=== PATIENT | female | born 1955 | race Caucasian/White ===

== ENCOUNTER 2019-12-31 10:56 | Inpatient (IN) | payer OTHER ==
--- NOTE | 2019-12-31 11:04 | PDOC ---
History of Present Illness - General Chief Complaint: Chest Pain Stated Complaint: CHEST PAIN Time Seen by Provider: 12/31/19 11:03 History Source: Patient Exam Limitations: No Limitations - History of Present Illness Initial Comments: 12/31/19 11:49 Pt presents to the ED complaining of the acute onset of chest pressure this AM that radiated to both arms. Denies shortness of breath, nausea or vomiting. Pain was cosntant, moderate in severity--described by the patient "as though I had been lifting something heavy". Pain lasted for approximately 20 min and then spontaneously resolved. Patient has a history of DI and hypothyroidism. States that she has experienced HTN in medical settings in the past, but PCP diagnosed her with white coat HTN after 24 hr blood pressure monitoring. Denies other cardiac risk factors. Past History - Past Medical History Allergies/Adverse Reactions: Allergies Allergy/AdvReac Type Severity Reaction Status Date / Time No Known Allergies Allergy Verified 12/31/19 10:58 Home Medications: Ambulatory Orders Desmopressin Acetate 0.1 mg PO DAILY 06/08/15 Levothyroxine [Synthroid -] 50 mcg PO QID 06/08/15 Anemia: No Asthma: No Cancer: No Cardiac Disorders: No CVA: No COPD: No CHF: No Dementia: No Diabetes: Yes (INSIPIDUS) GI Disorders: No Disorders: No HTN: Yes Hypercholesterolemia: No Liver Disease: No Seizures: Yes (hypoactive) Thyroid Disease: No - Surgical History Abdominal Surgery: No Appendectomy: No Cardiac Surgery: No Cholecystectomy: No Lung Surgery: No Neurologic Surgery: No Orthopedic Surgery: Yes (MENISCUS REPAIR) - Immunization History Td Vaccination: Yes Immunization Up to Date: No - Psycho Social/Smoking Cessation Hx Smoking Status: No Smoking History: Never smoked Number of Cigarettes Smoked Daily: 0 Hx Alcohol Use: Yes (occasional) Drug/Substance Use Hx: No Substance Use Type: None Hx Substance Use Treatment: No Review of Systems - Review of Systems Able to Perform ROS?: Yes Is the patient limited Japanese proficient: No Constitutional: No: Symptoms Reported, See HPI, Chills, Diaphoresis, Fever, Loss of Appetite, Malaise, Night Sweats, Weakness, Weight Stable, Unintentional Wgt. Loss, Unexplained wgt Loss, Other HEENTM: No: Symptoms Reported, See HPI, Eye Pain, Blurred Vision, Tearing, Recent change in vision, Double Vision, Cataracts, Ear Pain, Ocular Prothesis, Ear Discharge, Nose Pain, Nose Congestion, Tinnitus, Nose Bleeding, Hearing Loss , Throat Pain, Throat Swelling, Mouth Pain, Dental Problems, Difficulty Swallowing, Mouth Swelling, Other Respiratory: No: Symptoms reported, See HPI, Cough, Orthopnea, Shortness of Breath, SOB with Exertion, SOB at Rest, Stridor, Wheezing, Productive cough, Hemoptysis, Other Cardiac (ROS): Yes: Chest Pain, Chest Tightness. No: Symptoms Reported, See HPI , Edema, Irregular Heart Rate, Lightheadedness, Palpitations, Syncope, Other ABD/GI: No: Symptoms Reported, See HPI, Abdominal Distended, Abd. Pain w/ defecation, Blood Streaked Bowels, Constipated, Diarrhea, Difficulty Swallowing , Nausea, Poor Appetite, Poor Fluid Intake, Rectal Bleeding, Vomiting, Indigestion, Abdominal cramping, Tarry Stools, Other : No: Symptoms Reported, See HPI, Burning, Dysuria, Discharge, Frequency, Flank Pain, Hematuria, Incontinence, Pain, Urgency, Testicular Mass, Testicular Swelling, Lesions, Testicular Pain, Other Musculoskeletal: No: Symptoms Reported, See HPI, Back Pain, Gout, Joint Pain, Joint Swelling, Muscle Pain, Muscle Weakness, Neck Pain, Joint Stiffness, Other Neurological: No: Symptoms reported, See HPI, Headache, Numbness, Paresthesia, Pre-Existing Deficit, Seizure, Tingling, Tremors, Weakness, Unsteady Gait, Ataxia, Dizziness, Other All Other Systems: Reviewed and Negative *Physical Exam - Physical Exam 12/31/19 11:53 gen: alert, NAD HEENT: normocephalic, atraumatic CV: rrr no m/r/g pulm: CTA b/l Abdomen: soft, non tender, non distended, no guarding or rebound ext: no edema or tenderness. Heart Score/ECG Review - History History: Slightly suspicious - Electrocardiogram EKG: Normal - Age Age: >/= 65 - Risk Factors Based on the list above the patient has:: No risk factors known - ECG Intrepretation Rhythm: Regular Rhythm - [place]: Normal ED Treatment Course - LABORATORY CBC & Chemistry Diagram: 12/31/19 11:27 12/31/19 11:20 Medical Decision Making - Medical Decision Making 12/31/19 11:54 Pt presents to the ED complaining of chest pain. Patient has a normal EKG and no risk factors for cardiac disease, but given age, will check two sets of cardiac enzymes and discharge home if negative. patient has no signs or symptoms suspicious for PE. 12/31/19 14:42 Troponin is slightly positive. Patient remains chest pain free and completely asymptomatic. will admit to medicine for NSTEMI Discharge - Discharge Information Problems reviewed: Yes Clinical Impression/Diagnosis: NSTEMI (non-ST elevated myocardial infarction) Condition: Good - Admission Yes - Follow up/Referral Referrals: Yesica Puente MD [Primary Care Provider] - - Patient Discharge Instructions - Post Discharge Activity
[2019-12-31] MEDS ORDERED: ASPIRIN 81 MG CHEWABLE TABLETS PO ONE (11:18)
[2019-12-31] MEDS ORDERED: ASPIRIN 81 MG CHEWABLE TABLETS ONE (11:34)
[2019-12-31 11:49] LABS: BASO % 0.5 % (0-2.0); EOS % 0.6 % (0-4.5); HEMATOCRIT 44.9 % (32.4-45.2); HEMOGLOBIN 15.1 GM/dl (10.7-15.3); LYMPH % 25.8 % (8-40); MCH 31.2 pg (25.7-33.7); MCHC 33.6 g/dl (32.0-36.0); MEAN CELL VOLUME 92.8 fl (80-96); MEAN PLT VOLUME 10.2 fl (7.5-11.1); MONO % 8.5 % (3.8-10.2); NEUT % 64.6 % (42.8-82.8); PLATELET COUNT 219 K/MM3 (134-434); RBC 4.84 M/mm3 (3.60-5.2); RDW 12.1 % (11.6-15.6); WHITE BLOOD COUNT 4.9 K/mm3 (4.0-10.8)
[2019-12-31 11:58] LABS: ALBUMIN 3.9 g/dl (3.4-5.0); BILIRUBIN,TOTAL 0.6 mg/dl (0.2-1); CALCIUM 9.8 mg/dl (8.5-10); CREATININE 0.7 mg/dl (0.55-1.3); POTASSIUM 4.3 mmol/L (3.5-5.1); TOT PROT 6.8 g/dl (6.4-8.2)
[2019-12-31 15:27] LABS: EPITHELIAL CELLS FEW /hpf
--- NOTE | 2019-12-31 15:42 | HP ---
CHIEF COMPLAINT: Chest pain PCP: Dr. Jackeline Puente [facility] Administrative Specialist: Dr. Ambrose [place] HISTORY OF PRESENT ILLNESS: 64 year-old female with a PMH significant for elevated blood pressure not on medication, central diabetes insipidus x 10 years, and hypothyroidism. Patient presented to the ED for evaluation of symptoms of chest pressure and lightheadedness. Patient states that two days ago she awoke feeling slightly lightheaded. In the evening she had an episode of acid reflux. This morning she awoke suddenly from sleep with a feeling of pressure across her entire upper chest. The pain extended to the back of both arms, to the back of her neck, and she had tingling in her left arm. She also felt lightheaded. She took some Tums. The chest pressure resolved after about 20 minutes. On arrival to the ED patient experienced a flutter feeling in her chest and this recurred on the medical surgical floor. Patient denies diaphoresis, SOB, ANGELA, lower extremity edema. 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; lives with and son Smoking: never Alcohol: socially Drugs: no Allergies No Known Allergies Allergy (Verified 12/31/19 10:58) HOME MEDICATIONS: Home Medications Medication Instructions Recorded Desmopressin Acetate 0.1 mg PO QID 06/08/15 Levothyroxine [Synthroid -] 50 mcg PO DAILY 06/08/15 REVIEW OF SYSTEMS CONSTITUTIONAL: Absent: fever, chills, diaphoresis, generalized weakness, malaise, loss of appetite, weight change HEENT: Absent: rhinorrhea, nasal congestion, throat pain, throat swelling, difficulty swallowing, mouth swelling, ear pain, eye pain, visual changes CARDIOVASCULAR: +chest pressure, lightheadedness, palpitations Absent: syncope, irregular heart rate, peripheral edema RESPIRATORY: Absent: cough, shortness of breath, dyspnea with exertion, orthopnea, wheezing, stridor, hemoptysis GASTROINTESTINAL: Absent: abdominal pain, abdominal distension, nausea, vomiting, diarrhea, constipation, melena, hematochezia GENITOURINARY: Absent: dysuria, frequency, urgency, hesitancy, hematuria, flank pain, genital pain MUSCULOSKELETAL: Absent: myalgia, arthralgia, joint swelling, back pain, neck pain SKIN: Absent: rash, itching, pallor HEMATOLOGIC/IMMUNOLOGIC: Absent: easy bleeding, easy bruising, lymphadenopathy, frequent infections ENDOCRINE: Absent: unexplained weight gain, unexplained weight loss, heat intolerance, cold intolerance NEUROLOGIC: Absent: headache, focal weakness or paresthesias, dizziness, unsteady gait, seizure, mental status changes, bladder or bowel incontinence PSYCHIATRIC: Absent: anxiety, depression, suicidal or homicidal ideation, hallucinations. PHYSICAL EXAMINATION Vital Signs - 24 hr 12/31/19 12/31/19 12/31/19 10:56 11:15 12:10 Temperature 98.4 F Pulse Rate 60 Pulse Rate [ 64 50 L Apical] Respiratory 16 16 Rate Blood Pressure 173/75 H Blood Pressure 175/69 H 146/60 [Right Arm] O2 Sat by Pulse 100 95 98 Oximetry (%) 12/31/19 12/31/19 13:50 15:00 Temperature Pulse Rate Pulse Rate [ 56 L 58 L Apical] Respiratory 18 16 Rate Blood Pressure Blood Pressure 125/62 [Right Arm] O2 Sat by Pulse 98 98 Oximetry (%) GENERAL: Awake, alert, and fully oriented, in no acute distress. HEAD: Normal with no signs of trauma. EYES: Pupils equal, round and reactive to light, extraocular movements intact, sclera anicteric, conjunctiva clear. LUNGS: Breath sounds equal, clear to auscultation bilaterally. No wheezes, and no crackles. No accessory muscle use. HEART: Regular rate and rhythm, S1 and S2 ABDOMEN: Soft, nontender, not distended, MUSCULOSKELETAL: Normal range of motion at all joints. No bony deformities or tenderness. No CVA tenderness. UPPER EXTREMITIES: 2+ pulses, warm, well-perfused. No cyanosis. No clubbing. No peripheral edema. LOWER EXTREMITIES: 2+ pulses, warm, well-perfused. No calf tenderness. No peripheral edema. NEUROLOGICAL: Cranial nerves II-XII intact. Normal speech. Laboratory Results - last 24 hr 12/31/19 12/31/19 12/31/19 11:20 11:20 11:27 WBC 4.9 RBC 4.84 Hgb 15.1 Hct 44.9 MCV 92.8 MCH 31.2 MCHC 33.6 RDW 12.1 Plt Count 219 MPV 10.2 Absolute Neuts (auto) 3.2 Neutrophils % 64.6 Lymphocytes % 25.8 Monocytes % 8.5 Eosinophils % 0.6 Basophils % 0.5 Sodium 130 L Potassium 4.3 Chloride 101 Carbon Dioxide 24 Anion Gap 5 L BUN 13.0 Creatinine 0.7 Est GFR (CKD-EPI)AfAm 104.64 Est GFR (CKD-EPI)NonAf 90.29 Random Glucose 106 Calcium 9.8 Total Bilirubin 0.6 AST 23 ALT 22 Alkaline Phosphatase 68 Creatine Kinase 73 Troponin I 0.05 Total Protein 6.8 Albumin 3.9 Urine Color Urine Appearance Urine pH Urine Protein Urine Glucose (UA) Urine Ketones Urine Blood Urine Nitrite Urine Bilirubin Urine Urobilinogen Ur Leukocyte Esterase Urine RBC Urine WBC Ur Transition Epith Cell 12/31/19 12/31/19 12/31/19 13:45 13:45 15:10 WBC RBC Hgb Hct MCV MCH MCHC RDW Plt Count MPV Absolute Neuts (auto) Neutrophils % Lymphocytes % Monocytes % Eosinophils % Basophils % Sodium Potassium Chloride Carbon Dioxide Anion Gap BUN Creatinine Est GFR (CKD-EPI)AfAm Est GFR (CKD-EPI)NonAf Random Glucose Calcium Total Bilirubin AST ALT Alkaline Phosphatase Creatine Kinase 74 Troponin I 0.23 H Total Protein Albumin Urine Color Yellow Urine Appearance Clear Urine pH 5.0 Urine Protein Negative Urine Glucose (UA) Negative Urine Ketones Negative Urine Blood Negative Urine Nitrite Negative Urine Bilirubin Negative Urine Urobilinogen 0.2 Ur Leukocyte Esterase Trace H Urine RBC 0-2 Urine WBC 2-5 Ur Transition Epith Cell Few ASSESSMENT/PLAN: 64 year-old female with a PMH significant for elevated blood pressure not on medication, central diabetes insipidus x 10 years, and hypothyroidism. Admitted for chest pain. Chest pain NSTEMI --troponins 0.05-->0.23-->0.85 --serial ECGs reviewed, non specific T wave inversions, 1st degree block, no significant change from 2016 --ASA 325mg x 1; start daily ASA, high-dose Lipitor; lovenox 1mg/kg q12h; Plavix 75mg daily; defer BB due to sinus bradycardia; lisinopril 5mg --Echo ordered --Dr. Aburto following Elevated blood pressure --start lisinopril DVT prophylaxis: on full dose lovenox Full code Visit type - Emergency Visit Emergency Visit: Yes ED Registration Date: 01/01/20 Care time: The patient presented to the Emergency Department on the above date and was hospitalized for further evaluation of their emergent condition. - New Patient This patient is new to me today: Yes Date on this admission: 01/01/20 - Critical Care Critical Care patient: Yes Total Critical Care Time (in minutes): 90 Critical Care Statement: The care of this patient involved high complexity decision making to prevent further life threatening deterioration of the patient 's condition and/or to evaluate & treat vital organ system(s) failure or risk of failure.
[2019-12-31 17:38] VITALS: BMI 27.3
[2019-12-31] MEDS ORDERED: LEVOTHYROXINE NA 50 MCG TABLET (FP) PO SCH (18:00)
[2019-12-31 18:04] LABS: N-TERMINAL BNP 182.3 pg/ml (5-125)
[2019-12-31] MEDS: ENOXAPARIN NA (PORCINE) 80 MG/0.8 ML DISP.SYRIN SQ SCH (19:59)
[2019-12-31] MEDS: CLOPIDOGREL BISULFATE 75 MG TABLET (FP) PO SCH (19:59)
[2019-12-31] MEDS: LEVOTHYROXINE NA 50 MCG TABLET (FP) PO SCH (20:00)
[2019-12-31 20:36] LABS: CHOLESTEROL 195 mg/dl (50-200); HDL CHOLESTEROL 74 mg/dl (40-60); LDL CHOLESTEROL (ONLY DFH) 99 mg/dl (5-100); TRIGLYCERIDES 112 mg/dl (0-150)
--- NOTE | 2019-12-31 20:40 | CON.CARD ---
Consult Consult Specialty:: cardiology Reason for Consultation:: chest pain; +TNI - History of Present Illness Chief Complaint: Pt A&Ox3; no chest ain presently. Her son and are at bedisode. History of Present Illness: Pt is a 64 yr old white woman with PMHx diabetes insipidus, hypothyroidism (on Synthroid), HTN (on no medications; BP "about 140/80 at home"; overweight, hyperlipidemia, now presents to the ED complaining of the acute onset of chest pressure this AM when she woke up out of a dream at 830am; the discomfort radiated to both arms. Denies shortness of breath, nausea or vomiting. Pain was costant, moderate in severity--described by the patient "as though I had been lifting something heavy". Pain lasted for approximately 20 min and then spontaneously resolved. States that she has experienced HTN in medical settings in the past, but PCP diagnosed her with white coat HTN after 24 hr blood pressure monitoring. Denies other cardiac risk factors. For the past 2 months, pt has had a mild-moderateely intense left anterior chest wall pressure with exertion (swims; does elliptical; walks) that she ignores and works through. +exposure to 2nd hand smoke growing up. Father: had several MIs, the first probably in his 60s; of lung CA. Brother: smoker; had [place] in his 50s. - History Source History Provided By: Patient, Family Member (; son), Medical Record Limitations to Obtaining History: No Limitations - Past Medical History Reproductive: Yes: Postmenopausal ...: No Heme/Onc: No: Anemia - Alcohol/Substance Use Hx Alcohol Use: Yes (occasional) - Smoking History Smoking history: Former smoker (not a smoker, but grew up exposed to 2nd hand smoke in the house) Aproximately how many cigarettes per day: 0 Home Medications - Allergies Allergies/Adverse Reactions: Allergies Allergy/AdvReac Type Severity Reaction Status Date / Time No Known Allergies Allergy Verified 12/31/19 10:58 - Home Medications Home Medications: Ambulatory Orders Desmopressin Acetate 0.1 mg PO QID 06/08/15 Levothyroxine [Synthroid -] 50 mcg PO DAILY 06/08/15 Family Medical History Family Hx Cancer: Father (lung) Family Hx Cardiac Disorders: Father ([place] in his 60s), Brother ([place] in his 50s) Review of Systems - Review of Systems Constitutional: reports: No Symptoms Eyes: reports: No Symptoms HENT: reports: No Symptoms Neck: reports: No Symptoms Cardiovascular: reports: Chest Pain Respiratory: reports: No Symptoms Gastrointestinal: reports: Indigestion Genitourinary: reports: No Symptoms Breasts: reports: No Symptoms Reported Musculoskeletal: reports: No Symptoms Integumentary: reports: No Symptoms Neurological: reports: No Symptoms Endocrine: reports: No Symptoms Hematology/Lymphatic: reports: No Symptoms Psychiatric: reports: No Symptoms - Risk Factors Known Risk Factors: Yes: Age, Family History, Hypertension Vital Signs: Vital Signs Temperature 98.7 F 12/31/19 17:23 Pulse Rate 63 12/31/19 18:30 Respiratory Rate 18 12/31/19 17:23 Blood Pressure 152/70 12/31/19 18:30 O2 Sat by Pulse Oximetry (%) 98 12/31/19 18:30 Constitutional: Yes: Anxious Eyes: Yes: WNL HENT: Yes: WNL Neck: Yes: WNL Respiratory: Yes: WNL Gastrointestinal: Yes: WNL Renal/: Yes: WNL Cardiovascular: Yes: Regular Rate and Rhythm JVD: No Carotid Bruit: No PMI: Non-Displaced Heart Sounds: Yes: S1, S2, S4 Musculoskeletal: Yes: WNL Extremities: Yes: WNL Edema: No Peripheral Pulses WNL: Yes Integumentary: Yes: WNL ...Motor Strength: WNL Psychiatric: Yes: WNL - Other Data Labs, Other Data: CBC, BMP 12/31/19 11:27 12/31/19 11:20 Troponin, BNP 12/31/19 12/31/19 12/31/19 11:20 13:45 16:30 Troponin I 0.05 0.23 H B-Natriuretic Peptide 182.3 H 12/31/19 18:15 Troponin I 0.85 H* B-Natriuretic Peptide Troponin, BNP 12/31/19 12/31/19 12/31/19 11:20 13:45 16:30 Troponin I 0.05 0.23 H B-Natriuretic Peptide 182.3 H 12/31/19 18:15 Troponin I 0.85 H* B-Natriuretic Peptide Abnormal Lab Results 12/31/19 12/31/19 12/31/19 11:20 13:45 15:10 PT with INR Sodium 130 L Chloride Carbon Dioxide Anion Gap 5 L Creatinine Troponin I 0.23 H B-Natriuretic Peptide Total Protein HDL Cholesterol Ur Leukocyte Esterase Trace H 12/31/19 12/31/19 12/31/19 16:30 18:15 18:15 PT with INR Sodium Chloride Carbon Dioxide Anion Gap Creatinine Troponin I 0.85 H* B-Natriuretic Peptide 182.3 H Total Protein HDL Cholesterol 74 H Ur Leukocyte Esterase 01/01/20 01/01/20 01/01/20 01:00 07:00 07:00 PT with INR 13.5 H Sodium 126 L Chloride 96 L Carbon Dioxide 19 L Anion Gap Creatinine 0.5 L Troponin I 3.91 H* B-Natriuretic Peptide Total Protein 5.8 L HDL Cholesterol Ur Leukocyte Esterase 01/01/20 07:00 PT with INR Sodium Chloride Carbon Dioxide Anion Gap Creatinine Troponin I 0.94 H* B-Natriuretic Peptide Total Protein HDL Cholesterol Ur Leukocyte Esterase Imaging - Results Chest X-ray: Image Reviewed (no acute pathology) EKG: Image Reviewed (NSR: r/o anterior [place], age undetermined; no acute STT changes) Problem List - Problems (1) HTN (hypertension) Assessment/Plan: Started on lisinopril. Anxiolytic may be helpful in the present hospital setting. Code(s): I10 - ESSENTIAL (PRIMARY) HYPERTENSION (2) Diabetes insipidus Assessment/Plan: hyponatremic. F/u with acid recovery operator, [place]. On DDAVP. Code(s): E23.2 - DIABETES INSIPIDUS (3) Hypothyroid Assessment/Plan: On synthroid; TSH WNL. Code(s): E03.9 - HYPOTHYROIDISM, UNSPECIFIED (4) Hyperlipidemia Assessment/Plan: Start atorvastatin 80 mg daily (NSTEMI). Code(s): E78.5 - HYPERLIPIDEMIA, UNSPECIFIED (5) Overweight Code(s): E66.3 - OVERWEIGHT (6) NSTEMI (non-ST elevated myocardial infarction) Assessment/Plan: TNI 0.06-->0.085 EKG: no acute STT changes. Plan: ASA 325 mg, then 81 mg daily. Clopidogrel 75 mg daily Lovenox 1mg/kg BW sc bid Atorvastatin 80 mg daily Lisinopril 10 mg daily (beta sherlyn not started: resting sinus bradycardia) Follow TNI and EKG. Telemetry. ECHO for LVEF, wall motion. Maintain hydration. F/u hyponatremia (hx diabetes insipidus). Code(s): I21.4 - NON-ST ELEVATION (NSTEMI) MYOCARDIAL INFARCTION
[2019-12-31] MEDS: ATORVASTATIN CA 80 MG TABLET (FP) PO SCH (21:01)
[2019-12-31] MEDS: DESMOPRESSIN ACETATE 0.1 MG TABLET PO SCH (21:04)
[2019-12-31] MEDS ORDERED: ACETAMINOPHEN 325 MG TABLET (FP) PO ONE (21:12)
[2019-12-31] MEDS: LISINOPRIL 5 MG TABLET (FP) PO SCH (21:21)
[2019-12-31] MEDS ORDERED: HEPARIN NA (PORCINE) 5,000 UNITS/ML 1ML VIAL SQ SCH (22:00)
[2019-12-31] MEDS ORDERED: ATORVASTATIN CA 40 MG TABLET (FP) PO SCH (22:00)
[2020-01-01] MEDS ORDERED: NITROGLYCERIN SUBLINGUAL 1/150 0.4 MG TAB ONE (03:26)
[2020-01-01] MEDS ORDERED: NITROGLYCERIN SUBLINGUAL 1/150 0.4 MG TAB SL ONE (03:30)
[2020-01-01] MEDS ORDERED: FAMOTIDINE 20 MG/50 ML IVPB 20 MG/50 ML MG IVPB ONE (03:30)
[2020-01-01] MEDS ORDERED: ALPRAZolam 0.25 MG TABLET PO ONE (03:30)
[2020-01-01] MEDS: LEVOTHYROXINE NA 50 MCG TABLET (FP) PO SCH (07:08)
[2020-01-01] MEDS: ENOXAPARIN NA (PORCINE) 80 MG/0.8 ML DISP.SYRIN SQ SCH ×2 (07:08→20:01)
[2020-01-01 09:00] LABS: BASO % 0.4 % (0-2.0); EOS % 0.6 % (0-4.5); HEMATOCRIT 41.8 % (32.4-45.2); HEMOGLOBIN 14.1 GM/dl (10.7-15.3); LYMPH % 26.2 % (8-40); MCH 31.4 pg (25.7-33.7); MCHC 33.8 g/dl (32.0-36.0); MEAN PLT VOLUME 10.3 fl (7.5-11.1); MONO % 8.1 % (3.8-10.2); NEUT % 64.7 % (42.8-82.8); PLATELET COUNT 206 K/MM3 (134-434); RDW 11.9 % (11.6-15.6); WHITE BLOOD COUNT 5.3 K/mm3 (4.0-10.8)
[2020-01-01 09:15] LABS: ALBUMIN 3.5 g/dl (3.4-5.0); CALCIUM 8.5 mg/dl (8.5-10); CREATININE 0.5 mg/dl (0.55-1.3); MAGNESIUM 1.8 mg/dL (1.8-2.4); TOT PROT 5.8 g/dl (6.4-8.2)
[2020-01-01] MEDS ORDERED: NITROGLYCERIN SUBLINGUAL 1/150 0.4 MG TAB SL PRN (09:16)
[2020-01-01 09:46] LABS: ACTIVATED PTT 33.1 SECONDS (25.2-36.5)
[2020-01-01 09:51] LABS: INR 1.21 (0.82-1.09); PROTHROMBIN TIME (PATIENT) 13.5 SEC (10.2-13.0)
[2020-01-01] MEDS: ASPIRIN 81 MG CHEWABLE TABLETS PO SCH (10:00)
[2020-01-01] MEDS: PANTOPRAZOLE 40 MG TABLET PO SCH (10:00)
[2020-01-01] MEDS: CLOPIDOGREL BISULFATE 75 MG TABLET (FP) PO SCH (10:00)
[2020-01-01] MEDS ORDERED: DESMOPRESSIN ACETATE 0.1 MG TABLET PO SCH (10:00)
[2020-01-01] MEDS: DESMOPRESSIN ACETATE 0.1 MG TABLET PO SCH ×4 (10:00→23:44)
[2020-01-01] MEDS: LISINOPRIL 5 MG TABLET (FP) PO SCH (10:00)
[2020-01-01] MEDS ORDERED: ASPIRIN COATED 81 MG TABLET.EC PO SCH (10:00)
--- NOTE | 2020-01-01 11:27 | PN ---
Progress Note, Physician Chief Complaint: Pt sitting up in bed; A&Ox3; had two incidences of abdominal "indigestion" overnight;once, had left hand tingling as well. Episodes lasted about 45 minutes each time. History of Present Illness: Pt is a 64 yr old white woman with PMHx diabetes insipidus, hypothyroidism (on Synthroid), HTN (on no medications; BP "about 140/80 at home"; overweight, hyperlipidemia, now presents to the ED complaining of the acute onset of chest pressure this AM when she woke up out of a dream at 830am; the discomfort radiated to both arms. Denies shortness of breath, nausea or vomiting. Pain was costant, moderate in severity--described by the patient "as though I had been lifting something heavy". Pain lasted for approximately 20 min and then spontaneously resolved. States that she has experienced HTN in medical settings in the past, but PCP diagnosed her with white coat HTN after 24 hr blood pressure monitoring. Denies other cardiac risk factors. For the past 2 months, pt has had a mild-moderateely intense left anterior chest wall pressure with exertion (swims; does elliptical; walks) that she ignores and works through. +exposure to 2nd hand smoke growing up. Father: had several MIs, the first probably in his 60s; of lung CA. Brother: smoker; had [place] in his 50s. - Current Medication List Current Medications: Active Medications Aspirin (Asa -) 81 mg PO DAILY [facility] Last Admin: 01/01/20 10:00 Dose: 81 mg Atorvastatin Calcium (Lipitor -) 80 mg PO HS [facility] [place] Last Admin: 12/31/19 21:01 Dose: 80 mg Clopidogrel Bisulfate (Plavix -) 75 mg PO DAILY [facility] [place] Last Admin: 01/01/20 10:00 Dose: 75 mg Desmopressin Acetate (Ddavp -) 0.1 mg PO QID [facility] Last Admin: 01/01/20 10:00 Dose: 0.1 mg Enoxaparin Sodium (Lovenox -) 70 mg SQ Q12H [facility] [place] Last Admin: 01/01/20 07:08 Dose: 70 mg Levothyroxine Sodium (Synthroid -) 50 mcg PO DAILY@0700 [facility] [place] Last Admin: 01/01/20 07:08 Dose: 50 mcg Lisinopril (Prinivil) 5 mg PO DAILY [facility] [place] Last Admin: 01/01/20 10:00 Dose: 5 mg Nitroglycerin (Nitrostat -) 0.4 mg SL Q5M PRN PRN Reason: FOR CHEST PAIN Pantoprazole Sodium (Protonix -) 40 mg PO DAILY [facility] [place] Last Admin: 01/01/20 10:00 Dose: 40 mg - Objective Vital Signs: Vital Signs Temperature 97.3 F L 01/01/20 10:00 Pulse Rate 62 01/01/20 10:00 Respiratory Rate 19 01/01/20 10:00 Blood Pressure 124/69 01/01/20 10:00 O2 Sat by Pulse Oximetry (%) 100 01/01/20 06:00 Constitutional: Yes: Anxious (mild) Eyes: Yes: WNL HENT: Yes: WNL Neck: Yes: WNL Cardiovascular: Yes: Regular Rate and Rhythm, S1, S2 Respiratory: Yes: WNL Gastrointestinal: Yes: WNL ...Rectal Exam: Yes: Deferred Genitourinary: No: Anuria Breast(s): Yes: WNL Musculoskeletal: Yes: WNL Extremities: Yes: WNL Edema: No Peripheral Pulses WNL: Yes Integumentary: Yes: WNL Neurological: Yes: WNL Psychiatric: Yes: WNL Labs: CBC, BMP 01/01/20 07:00 01/01/20 07:00 INR, PTT INR 1.21 (0.82-1.09) 01/01/20 07:00 Abnormal Lab Results 12/31/19 12/31/19 12/31/19 11:20 13:45 15:10 PT with INR Sodium 130 L Chloride Carbon Dioxide Anion Gap 5 L Creatinine Troponin I 0.23 H B-Natriuretic Peptide Total Protein HDL Cholesterol Ur Leukocyte Esterase Trace H 12/31/19 12/31/19 12/31/19 16:30 18:15 18:15 PT with INR Sodium Chloride Carbon Dioxide Anion Gap Creatinine Troponin I 0.85 H* B-Natriuretic Peptide 182.3 H Total Protein HDL Cholesterol 74 H Ur Leukocyte Esterase 01/01/20 01/01/20 01/01/20 01:00 07:00 07:00 PT with INR 13.5 H Sodium 126 L Chloride 96 L Carbon Dioxide 19 L Anion Gap Creatinine 0.5 L Troponin I 3.91 H* B-Natriuretic Peptide Total Protein 5.8 L HDL Cholesterol Ur Leukocyte Esterase 01/01/20 07:00 PT with INR Sodium Chloride Carbon Dioxide Anion Gap Creatinine Troponin I 0.94 H* B-Natriuretic Peptide Total Protein HDL Cholesterol Ur Leukocyte Esterase - ....Imaging Chest X-ray: Image Reviewed (no acute pathology) EKG: Image Reviewed (sinus bradycardia; cannot r/o anterior wall myocardial injury) Problem List - Problems (1) HTN (hypertension) Assessment/Plan: Started on lisinopril. Was finally able to rest after dose of alprazolam. Code(s): I10 - ESSENTIAL (PRIMARY) HYPERTENSION (2) Diabetes insipidus Assessment/Plan: hyponatremic. F/u with netbackup administrator, PMD. On DDAVP. Code(s): E23.2 - DIABETES INSIPIDUS (3) Hypothyroid Assessment/Plan: On synthroid; TSH WNL. Code(s): E03.9 - HYPOTHYROIDISM, UNSPECIFIED (4) Hyperlipidemia Assessment/Plan: Started atorvastatin 80 mg daily (NSTEMI). Code(s): E78.5 - HYPERLIPIDEMIA, UNSPECIFIED (5) Overweight Code(s): E66.3 - OVERWEIGHT (6) NSTEMI (non-ST elevated myocardial infarction) Assessment/Plan: TNI maximum overnight 3.9;now 0.9. EKG: no acute STT changes. Plan: Brilinta 180 mg bolus, then 90 mg bid (discontinue clopidogrel).NTG for chest pain. Continue ASA, atorvastatin, lisinopril, Lovenox. Dr. Leos will follow pt in the morning, with plans for coronary angiogram. Code(s): I21.4 - NON-ST ELEVATION (NSTEMI) MYOCARDIAL INFARCTION
[2020-01-01] MEDS ORDERED: TICAGRELOR 90 MG TABLET PO ONE (11:45)
--- NOTE | 2020-01-01 14:20 | EKG ---
Test Reason : Blood Pressure : / mmHG Vent. Rate : 058 BPM Atrial Rate : 058 BPM P-R Int : 236 ms QRS Dur : 088 ms QT Int : 426 ms P-R-T Axes : 043 024 024 degrees QTc Int : 418 ms SINUS BRADYCARDIA WITH SINUS ARRHYTHMIA WITH 1ST DEGREE A-V BLOCK CANNOT RULE OUT ANTERIOR INFARCT , AGE UNDETERMINED ABNORMAL ECG Confirmed by MD ELIO, CALLUM ([id number]) on 01/01/2020 2:20:22 PM Referred By: PATRICIO YOUSSEF Confirmed By:CALLUM BALLARD MD
--- NOTE | 2020-01-01 14:20 | EKG ---
Test Reason : Blood Pressure : / mmHG Vent. Rate : 068 BPM Atrial Rate : 068 BPM P-R Int : 230 ms QRS Dur : 092 ms QT Int : 422 ms P-R-T Axes : 030 012 -06 degrees QTc Int : 448 ms SINUS RHYTHM WITH 1ST DEGREE A-V BLOCK CANNOT RULE OUT ANTERIOR INFARCT (CITED ON OR BEFORE 31-DEC-2019) ABNORMAL ECG Confirmed by MD ELIO, CALLUM ([id number]) on 01/01/2020 2:19:52 PM Referred By: Confirmed By:CALLUM BALLARD MD
--- NOTE | 2020-01-01 14:21 | EKG ---
Test Reason : Blood Pressure : / mmHG Vent. Rate : 057 BPM Atrial Rate : 057 BPM P-R Int : 230 ms QRS Dur : 090 ms QT Int : 424 ms P-R-T Axes : 054 006 020 degrees QTc Int : 412 ms SINUS BRADYCARDIA WITH 1ST DEGREE A-V BLOCK OTHERWISE NORMAL ECG Confirmed by MD ELIO, CALLUM ([id number]) on 01/01/2020 2:20:30 PM Referred By: DIANNE BUCKNER Confirmed By:CALLUM BALLARD MD
--- NOTE | 2020-01-01 14:21 | EKG ---
Test Reason : Blood Pressure : / mmHG Vent. Rate : 057 BPM Atrial Rate : 057 BPM P-R Int : 224 ms QRS Dur : 092 ms QT Int : 420 ms P-R-T Axes : 041 015 012 degrees QTc Int : 408 ms SINUS BRADYCARDIA WITH 1ST DEGREE A-V BLOCK OTHERWISE NORMAL ECG Confirmed by MD ELIO, CALLUM ([id number]) on 01/01/2020 2:20:33 PM Referred By: DIANNE BUCKNER Confirmed By:CALLUM BALLARD MD
--- NOTE | 2020-01-01 14:34 | PN ---
Physical Exam: SUBJECTIVE: Patient seen and examined OBJECTIVE: Vital Signs Period Temp Pulse Resp BP Sys/Singh Pulse Ox Last 24 Hr 97.3 F-98.7 F 53-66 16-19 114-170/55-75 92-100 GENERAL: Awake, alert, and fully oriented, in no acute distress. LUNGS: Breath sounds equal, clear to auscultation bilaterally. No wheezes, and no crackles. No accessory muscle use. HEART: Regular rate and rhythm, S1 and S2 ABDOMEN: Soft, nontender, not distended, MUSCULOSKELETAL: Normal range of motion at all joints. No bony deformities or tenderness. No CVA tenderness. UPPER EXTREMITIES: 2+ pulses, warm, well-perfused. No cyanosis. No clubbing. No peripheral edema. LOWER EXTREMITIES: 2+ pulses, warm, well-perfused. No calf tenderness. No peripheral edema. NEUROLOGICAL: Cranial nerves II-XII intact. Normal speech. Laboratory Results - last 24 hr 12/31/19 12/31/19 12/31/19 13:45 15:10 16:30 WBC RBC Hgb Hct MCV MCH MCHC RDW Plt Count MPV Absolute Neuts (auto) Neutrophils % Lymphocytes % Monocytes % Eosinophils % Basophils % PT with INR INR PTT (Actin FS) Sodium Potassium Chloride Carbon Dioxide Anion Gap BUN Creatinine Est GFR (CKD-EPI)AfAm Est GFR (CKD-EPI)NonAf Random Glucose Calcium Magnesium Total Bilirubin AST ALT Alkaline Phosphatase Creatine Kinase Troponin I 0.23 H B-Natriuretic Peptide 182.3 H Total Protein Albumin Triglycerides Cholesterol Total LDL Cholesterol HDL Cholesterol TSH 1.72 Urine Color Yellow Urine Appearance Clear Urine pH 5.0 Urine Protein Negative Urine Glucose (UA) Negative Urine Ketones Negative Urine Blood Negative Urine Nitrite Negative Urine Bilirubin Negative Urine Urobilinogen 0.2 Ur Leukocyte Esterase Trace H Urine RBC 0-2 Urine WBC 2-5 Ur Transition Epith Cell Few 12/31/19 12/31/19 12/31/19 18:15 18:15 18:15 WBC RBC Hgb Hct MCV MCH MCHC RDW Plt Count MPV Absolute Neuts (auto) Neutrophils % Lymphocytes % Monocytes % Eosinophils % Basophils % PT with INR INR PTT (Actin FS) Sodium Potassium Chloride Carbon Dioxide Anion Gap BUN Creatinine Est GFR (CKD-EPI)AfAm Est GFR (CKD-EPI)NonAf Random Glucose Calcium Magnesium 1.8 Total Bilirubin AST ALT Alkaline Phosphatase Creatine Kinase Cancelled Troponin I 0.85 H* B-Natriuretic Peptide Total Protein Albumin Triglycerides Cholesterol Total LDL Cholesterol HDL Cholesterol TSH Urine Color Urine Appearance Urine pH Urine Protein Urine Glucose (UA) Urine Ketones Urine Blood Urine Nitrite Urine Bilirubin Urine Urobilinogen Ur Leukocyte Esterase Urine RBC Urine WBC Ur Transition Epith Cell 12/31/19 12/31/19 01/01/20 18:15 18:15 01:00 WBC RBC Hgb Hct MCV MCH MCHC RDW Plt Count MPV Absolute Neuts (auto) Neutrophils % Lymphocytes % Monocytes % Eosinophils % Basophils % PT with INR INR PTT (Actin FS) Sodium Potassium Chloride Carbon Dioxide Anion Gap BUN Creatinine Est GFR (CKD-EPI)AfAm Est GFR (CKD-EPI)NonAf Random Glucose Calcium Magnesium Total Bilirubin AST ALT Alkaline Phosphatase Creatine Kinase 92 Troponin I 3.91 H* B-Natriuretic Peptide Total Protein Albumin Triglycerides 112 Cholesterol 195 Total LDL Cholesterol 99 HDL Cholesterol 74 H TSH Urine Color Urine Appearance Urine pH Urine Protein Urine Glucose (UA) Urine Ketones Urine Blood Urine Nitrite Urine Bilirubin Urine Urobilinogen Ur Leukocyte Esterase Urine RBC Urine WBC Ur Transition Epith Cell 01/01/20 01/01/20 01/01/20 07:00 07:00 07:00 WBC 5.3 RBC 4.50 Hgb 14.1 Hct 41.8 MCV 93.0 MCH 31.4 MCHC 33.8 RDW 11.9 Plt Count 206 MPV 10.3 Absolute Neuts (auto) 3.5 Neutrophils % 64.7 Lymphocytes % 26.2 Monocytes % 8.1 Eosinophils % 0.6 Basophils % 0.4 PT with INR 13.5 H INR 1.21 PTT (Actin FS) 33.1 Sodium 126 L Potassium 4.0 Chloride 96 L Carbon Dioxide 19 L Anion Gap 11 BUN 13.0 Creatinine 0.5 L Est GFR (CKD-EPI)AfAm 116.89 Est GFR (CKD-EPI)NonAf 100.85 Random Glucose 99 Calcium 8.5 Magnesium 1.8 Total Bilirubin 1.0 AST 26 ALT 19 Alkaline Phosphatase 58 D Creatine Kinase Troponin I B-Natriuretic Peptide Total Protein 5.8 L Albumin 3.5 Triglycerides Cholesterol Total LDL Cholesterol HDL Cholesterol TSH Urine Color Urine Appearance Urine pH Urine Protein Urine Glucose (UA) Urine Ketones Urine Blood Urine Nitrite Urine Bilirubin Urine Urobilinogen Ur Leukocyte Esterase Urine RBC Urine WBC Ur Transition Epith Cell 01/01/20 01/01/20 07:00 13:00 WBC RBC Hgb Hct MCV MCH MCHC RDW Plt Count MPV Absolute Neuts (auto) Neutrophils % Lymphocytes % Monocytes % Eosinophils % Basophils % PT with INR INR PTT (Actin FS) Sodium Potassium Chloride Carbon Dioxide Anion Gap BUN Creatinine Est GFR (CKD-EPI)AfAm Est GFR (CKD-EPI)NonAf Random Glucose Calcium Magnesium Total Bilirubin AST ALT Alkaline Phosphatase Creatine Kinase Troponin I 0.94 H* 0.86 H* B-Natriuretic Peptide Total Protein Albumin Triglycerides Cholesterol Total LDL Cholesterol HDL Cholesterol TSH Urine Color Urine Appearance Urine pH Urine Protein Urine Glucose (UA) Urine Ketones Urine Blood Urine Nitrite Urine Bilirubin Urine Urobilinogen Ur Leukocyte Esterase Urine RBC Urine WBC Ur Transition Epith Cell Active Medications Generic Name Dose Route Start Last Admin Trade Name Freq PRN Reason Stop Dose Admin Aspirin 81 mg 01/01/20 10:00 01/01/20 10:00 Asa - PO 81 mg DAILY [place] Administration Atorvastatin Calcium 80 mg 12/31/19 19:27 12/31/19 21:01 Lipitor - PO 80 mg HS [place] Administration Desmopressin Acetate 0.1 mg 12/31/19 22:00 01/01/20 14:18 Ddavp - PO 0.1 mg QID [place] Administration Enoxaparin Sodium 70 mg 12/31/19 19:30 01/01/20 07:08 Lovenox - SQ 70 mg Q12H [place] Administration Levothyroxine Sodium 50 mcg 12/31/19 18:15 01/01/20 07:08 Synthroid - PO 50 mcg DAILY@0700 [place] Administration Lisinopril 5 mg 12/31/19 21:15 01/01/20 10:00 Prinivil PO 5 mg DAILY [place] Administration Nitroglycerin 0.4 mg 01/01/20 09:16 Nitrostat - SL Q5M PRN FOR CHEST PAIN Pantoprazole Sodium 40 mg 01/01/20 10:00 01/01/20 10:00 Protonix - PO 40 mg DAILY [place] Administration Ticagrelor 90 mg 01/02/20 10:00 Brilinta - PO BID [facility] ASSESSMENT/PLAN: 64 year-old female with a PMH significant for elevated blood pressure not on medication, central diabetes insipidus x 10 years, and hypothyroidism. Admitted NSTEMI. Chest pain NSTEMI --troponins peak 3.91, trending down --serial ECGs reviewed, non specific T wave inversions, 1st degree block, no significant change from 2016 --ASA 81mg daily, Lipitor 80mg daily, lovenox 1mg/kg q12h; stop Plavix, ticagrelor 180mg x 1, then 90mg BID; lisinopril 5mg daily --Echo done pending dictation --Dr. Aburto following for Dr. Leos Central diabetes insipidus --Na is low --continue desmopressin Hypothyroidism --continue levothyroxine DVT prophylaxis: on full dose lovenox Dispo: plan is for transfer for cardiac cath in am. Full code Visit type - Emergency Visit Emergency Visit: Yes ED Registration Date: 01/01/20 Care time: The patient presented to the Emergency Department on the above date and was hospitalized for further evaluation of their emergent condition. - New Patient This patient is new to me today: No - Critical Care Critical Care patient: Yes Total Critical Care Time (in minutes): 45 Critical Care Statement: The care of this patient involved high complexity decision making to prevent further life threatening deterioration of the patient 's condition and/or to evaluate & treat vital organ system(s) failure or risk of failure.
--- NOTE | 2020-01-01 18:10 | DS ---
Physical Exam: SUBJECTIVE: Patient seen and examined at bedside. OBJECTIVE: Vital Signs Period Temp Pulse Resp BP Sys/Singh Pulse Ox Last 24 Hr 97.3 F-98.1 F 53-65 17-19 114-158/55-72 92-100 PHYSICAL EXAM GENERAL: Awake, alert, and fully oriented, in no acute distress. LUNGS: Breath sounds equal, clear to auscultation bilaterally. No wheezes, and no crackles. No accessory muscle use. HEART: Regular rate and rhythm, S1 and S2 ABDOMEN: Soft, nontender, not distended, MUSCULOSKELETAL: Normal range of motion at all joints. No bony deformities or tenderness. No CVA tenderness. UPPER EXTREMITIES: 2+ pulses, warm, well-perfused. No cyanosis. No clubbing. No peripheral edema. LOWER EXTREMITIES: 2+ pulses, warm, well-perfused. No calf tenderness. No peripheral edema. NEUROLOGICAL: Cranial nerves II-XII intact. Normal speech. LABS Laboratory Results - last 24 hr 12/31/19 12/31/19 12/31/19 16:30 18:15 18:15 WBC RBC Hgb Hct MCV MCH MCHC RDW Plt Count MPV Absolute Neuts (auto) Neutrophils % Lymphocytes % Monocytes % Eosinophils % Basophils % PT with INR INR PTT (Actin FS) Sodium Potassium Chloride Carbon Dioxide Anion Gap BUN Creatinine Est GFR (CKD-EPI)AfAm Est GFR (CKD-EPI)NonAf Random Glucose Calcium Magnesium 1.8 Total Bilirubin AST ALT Alkaline Phosphatase Creatine Kinase Troponin I 0.85 H* B-Natriuretic Peptide 182.3 H Total Protein Albumin Triglycerides Cholesterol Total LDL Cholesterol HDL Cholesterol TSH 1.72 12/31/19 12/31/19 12/31/19 18:15 18:15 18:15 WBC RBC Hgb Hct MCV MCH MCHC RDW Plt Count MPV Absolute Neuts (auto) Neutrophils % Lymphocytes % Monocytes % Eosinophils % Basophils % PT with INR INR PTT (Actin FS) Sodium Potassium Chloride Carbon Dioxide Anion Gap BUN Creatinine Est GFR (CKD-EPI)AfAm Est GFR (CKD-EPI)NonAf Random Glucose Calcium Magnesium Total Bilirubin AST ALT Alkaline Phosphatase Creatine Kinase Cancelled 92 Troponin I B-Natriuretic Peptide Total Protein Albumin Triglycerides 112 Cholesterol 195 Total LDL Cholesterol 99 HDL Cholesterol 74 H TSH 01/01/20 01/01/20 01/01/20 01:00 07:00 07:00 WBC 5.3 RBC 4.50 Hgb 14.1 Hct 41.8 MCV 93.0 MCH 31.4 MCHC 33.8 RDW 11.9 Plt Count 206 MPV 10.3 Absolute Neuts (auto) 3.5 Neutrophils % 64.7 Lymphocytes % 26.2 Monocytes % 8.1 Eosinophils % 0.6 Basophils % 0.4 PT with INR 13.5 H INR 1.21 PTT (Actin FS) 33.1 Sodium Potassium Chloride Carbon Dioxide Anion Gap BUN Creatinine Est GFR (CKD-EPI)AfAm Est GFR (CKD-EPI)NonAf Random Glucose Calcium Magnesium Total Bilirubin AST ALT Alkaline Phosphatase Creatine Kinase Troponin I 3.91 H* B-Natriuretic Peptide Total Protein Albumin Triglycerides Cholesterol Total LDL Cholesterol HDL Cholesterol TSH 01/01/20 01/01/20 01/01/20 07:00 07:00 13:00 WBC RBC Hgb Hct MCV MCH MCHC RDW Plt Count MPV Absolute Neuts (auto) Neutrophils % Lymphocytes % Monocytes % Eosinophils % Basophils % PT with INR INR PTT (Actin FS) Sodium 126 L Potassium 4.0 Chloride 96 L Carbon Dioxide 19 L Anion Gap 11 BUN 13.0 Creatinine 0.5 L Est GFR (CKD-EPI)AfAm 116.89 Est GFR (CKD-EPI)NonAf 100.85 Random Glucose 99 Calcium 8.5 Magnesium 1.8 Total Bilirubin 1.0 AST 26 ALT 19 Alkaline Phosphatase 58 D Creatine Kinase Troponin I 0.94 H* 0.86 H* B-Natriuretic Peptide Total Protein 5.8 L Albumin 3.5 Triglycerides Cholesterol Total LDL Cholesterol HDL Cholesterol TSH HOSPITAL COURSE: Date of Admission:01/01/20 Date of Transfer: 01/01/20 Pre hospital course 64 year-old female with a PMH significant for elevated blood pressure not on medication, central diabetes insipidus x 10 years, and hypothyroidism. Patient presented to the ED for evaluation of symptoms of chest pressure and lightheadedness. Patient states that two days ago she awoke feeling slightly lightheaded. In the evening she had an episode of acid reflux. This morning she awoke suddenly from sleep with a feeling of pressure across her entire upper chest. The pain extended to the back of both arms, to the back of her neck, and she had tingling in her left arm. She also felt lightheaded. She took some Tums. The chest pressure resolved after about 20 minutes. On arrival to the ED patient experienced a flutter feeling in her chest and this recurred on the medical surgical floor. Patient denies diaphoresis, SOB, ANGELA, lower extremity edema. 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 Admitted NSTEMI. Chest pain NSTEMI --troponin peak 3.91, trending down --serial ECGs reviewed, non specific T wave inversions, 1st degree block, no significant change from 2016 --ASA 81mg daily, Lipitor 80mg daily, lovenox 1mg/kg q12h; stop Plavix, ticagrelor 180mg x 1, then 90mg BID; lisinopril 5mg daily --Echo done pending dictation --Dr. Aburto following for Dr. Leos Central diabetes insipidus --Na is low --continue desmopressin Hypothyroidism --continue levothyroxine DVT prophylaxis: on full dose lovenox Dispo: plan is for transfer to [facility] for cardiac cath. Full code Minutes to complete discharge: 35 Discharge Summary Problems reviewed: Yes Reason For Visit: NON-ST ELEVATION MYOCARDIAL INFACTION (NSTEMI) Current Active Problems Diabetes insipidus (Acute) HTN (hypertension) (Acute) Hyperlipidemia (Acute) Hypothyroid (Acute) NSTEMI (non-ST elevated myocardial infarction) (Acute) Overweight (Acute) Condition: Good - Instructions Referrals: Yesica Puente MD [Primary Care Provider] - Disposition: TRANSFER ACUTE CARE/OTHER HOSP - Home Medications Comprehensive Discharge Medication List: Ambulatory Orders Aspirin [ASA -] 81 mg PO DAILY tab.chew 01/01/20 Atorvastatin Ca [Lipitor] 80 mg PO HS tablet 01/01/20 Desmopressin Acetate [Desmopressin Acetate -] 0.1 mg PO QID tablet 01/01/20 Enoxaparin [Lovenox -] 70 mg SQ Q12H disp.syrin 01/01/20 Levothyroxine [Synthroid -] 50 mcg PO DAILY@0700 tablet 01/01/20 Lisinopril [Prinivil] 5 mg PO DAILY tablet 01/01/20 Nitroglycerin Sublingual [Nitrostat -] 0.4 mg SL Q5M PRN tab 01/01/20 Pantoprazole Sodium [Protonix -] 40 mg PO DAILY tablet.ec 01/01/20 Ticagrelor [Brilinta -] 90 mg PO BID tablet 01/01/20 This patient is new to me today: No Emergency Visit: Yes ED Registration Date: 01/01/20 Care time: The patient presented to the Emergency Department on the above date and was hospitalized for further evaluation of their emergent condition. Critical Care patient: Yes Total Critical Care Time (in minutes): 30 Critical Care Statement: The care of this patient involved high complexity decision making to prevent further life threatening deterioration of the patient 's condition and/or to evaluate & treat vital organ system(s) failure or risk of failure. - Discharge Referral Referred to [facility] Med [facility] No
[2020-01-01] MEDS: ATORVASTATIN CA 80 MG TABLET (FP) PO SCH (21:37)
[2020-01-01 22:33] VITALS: TEMP 97.6
[2020-01-01] MEDS ORDERED: PT OWN MED DRAWER 7, Y5N ONE (23:29)
[2020-01-02 05:59] VITALS: BP 135/62; PULSE 50
[2020-01-02] MEDS: LEVOTHYROXINE NA 50 MCG TABLET (FP) PO SCH (06:27)
[2020-01-02] MEDS: ENOXAPARIN NA (PORCINE) 80 MG/0.8 ML DISP.SYRIN SQ SCH (06:49)
[2020-01-02] MEDS ORDERED: PT OWN MED DRAWER 7, Y5N ONE (08:44)
[2020-01-02] MEDS: PANTOPRAZOLE 40 MG TABLET PO SCH (08:48)
[2020-01-02] MEDS: TICAGRELOR 90 MG TABLET PO SCH ×2 (08:48→09:09)
[2020-01-02] MEDS: LISINOPRIL 5 MG TABLET (FP) PO SCH (08:49)
[2020-01-02] MEDS: ASPIRIN 81 MG CHEWABLE TABLETS PO SCH (08:49)
[2020-01-02] MEDS: DESMOPRESSIN ACETATE 0.1 MG TABLET PO SCH (08:49)
--- NOTE | 2020-01-03 07:17 | ECHO ---
Name: MYNOR DAVISON Exam:Adult Echocardiogram Study Date: 01/01/2020 11:22 AM Age: 64 yrs Reason For Study: NSTEMI Height: 63 in Weight: 154 lb BSA: 1.7 m2 MMode/2D Measurements & Calculations IVSd: 0.92 cm Ao root diam: 2.6 cm LVIDd: 4.5 cm LA dimension: 3.3 cm LVIDs: 3.2 cm ACS: 2.0 cm LVPWd: 0.96 cm EDV(Teich): 93.1 ml LVOT diam: 2.1 cm ESV(Teich): 40.5 ml Doppler Measurements & Calculations MV E max fady: 74.4 cm/sec MV A max fady: 94.2 cm/sec MV dec slope: 260.3 cm/sec2 MV E/A: 0.79 Ao V2 max: 179.0 cm/sec LV V1 max P.8 mmHg Ao max P.8 mmHg LV V1 mean P.5 mmHg Ao V2 mean: 127.6 cm/sec LV V1 max: 110.0 cm/sec Ao mean P.3 mmHg LV V1 mean: 73.6 cm/sec Ao V2 VTI: 40.2 cm LV V1 VTI: 26.8 cm IMAN(I,D): 2.3 cm2 IMAN(V,D): 2.1 cm2 SV(LVOT): 93.3 ml TR max fady: 223.5 cm/sec TR max P.0 mmHg Pulm Sys Fady: 58.5 cm/sec Pulm Singh Fady: 39.2 cm/sec Pulm S/D: 1.5 Procedure Study Quality: Fair. Left Ventricle The left ventricle is normal in size. There is normal left ventricular wall thickness. Left ventricul ar systolic function is normal. Ejection Fraction = 55-60%. The transmitral spectral Doppler flow patter n is suggestive of impaired LV relaxation. Right Ventricle The right ventricle is grossly normal size. The right ventricular systolic function is grossly normal . Atria Normal left and right atrial size and function. Mitral Valve The mitral valve is grossly normal. There is no mitral regurgitation noted. Tricuspid Valve The tricuspid valve is not well visualized, but is grossly normal. Aortic Valve The aortic valve is not well visualized. Mild to moderate aortic regurgitation. Pulmonic Valve The pulmonic valve is not well visualized. Great Vessels The aortic root is normal size. Pericardium/Pleura There is no pericardial effusion. Interpretation Summary LV: Carli size and systolic function, EF 55-60%, impaired relaxation RV: Normal Mild to moderate aortic regurgitation. Sarah Gonzales 01/02/2020 03:27 PM
--- NOTE | 2020-01-03 13:04 | EKG ---
Test Reason : Blood Pressure : / mmHG Vent. Rate : 058 BPM Atrial Rate : 058 BPM P-R Int : 242 ms QRS Dur : 086 ms QT Int : 440 ms P-R-T Axes : 035 009 013 degrees QTc Int : 431 ms SINUS BRADYCARDIA WITH 1ST DEGREE A-V BLOCK CANNOT RULE OUT ANTERIOR INFARCT (CITED ON OR BEFORE 31-DEC-2019) ABNORMAL ECG WHEN COMPARED WITH ECG OF 01-JAN-2020 02:41, NO SIGNIFICANT CHANGE WAS FOUND Confirmed by Arnol Lucas MD ([id number]) on 01/03/2020 1:04:24 PM Referred By: DAVE YOUSSEF Confirmed By:Arnol Lucas MD
== END 2020-01-02 09:30 | disposition short-term general hospital (02) | DRG 281 ==
LOC: FER 10:56 → UNDOADMIN 15:37 → FM/S 15:37 → UNDOADMIN 01-01 01:21 → FM/S 01-01 01:21
PROVIDERS: ADMIT Internal Medicine; ATTEND Nurse Practitioner Acute Care
DX: I21.4 Non-ST elevation (NSTEMI) myocardial infarction (principal); E23.2 Diabetes insipidus; R07.9 Chest pain, unspecified; E03.9 Hypothyroidism, unspecified; I10 Essential (primary) hypertension; E66.3 Overweight; Z68.27 Body mass index [BMI] 27.0-27.9, adult; E78.5 Hyperlipidemia, unspecified; I44.0 Atrioventricular block, first degree
CPT/HCPCS: 36415; 71046-TC-FY; 80053; 80061; 81003; 81015; 82550; 83735; 83880; 84443; 84484; 85025; 85610; 85730; 93005; 93306-TC; 99285-25

== ENCOUNTER 2021-06-05 06:11 | Emergency (ER) | payer OTHER ==
[2021-06-05 06:27] VITALS: TEMP 98.2; BMI 27.4
[2021-06-05] MEDS ORDERED: LOCK ITEM NR ONE (07:29)
[2021-06-05 07:49] LABS: BASO % 2.2 % (0-2.0); EOS % 1.1 % (0-4.5); HEMATOCRIT 41.1 % (32.4-45.2); LYMPH % 32.8 % (8-40); MCH 31.6 pg (25.7-33.7); MCHC 34.1 g/dl (32.0-36.0); MEAN CELL VOLUME 92.6 fl (80-96); MEAN PLT VOLUME 10.4 fl (7.5-11.1); MONO % 9.2 % (3.8-10.2); NEUT % 54.7 % (42.8-82.8); PLATELET COUNT 176 10^3/uL (134-434); RBC 4.44 M/mm3 (3.60-5.2); RDW 12.1 % (11.6-15.6); WHITE BLOOD COUNT 6.3 K/mm3 (4.0-10.8)
[2021-06-05 07:50] LABS: ALBUMIN 3.9 g/dl (3.4-5.0); BILIRUBIN,TOTAL 1.6 mg/dl (0.2-1); CALCIUM 8.4 mg/dl (8.5-10); CREATININE 0.6 mg/dl (0.55-1.3); TOT PROT 6.5 g/dl (6.4-8.2)
[2021-06-05] MEDS ORDERED: ATENOLOL 25 MG TABLET (FP) PO ONE (09:56)
[2021-06-05] MEDS ORDERED: ASPIRIN 81 MG CHEWABLE TABLETS PO ONE (09:56)
[2021-06-05] MEDS ORDERED: ASPIRIN 81 MG CHEWABLE TABLETS ONE (09:57)
[2021-06-05 10:06] VITALS: BP 134/71; PULSE 54
== END 2021-06-05 10:14 | disposition home or self-care (01) ==
LOC: FER 06:11
DX: I10 Essential (primary) hypertension (principal)
CPT/HCPCS: 36415; 70450-TC; 80053; 82550; 84484; 85025; 93005; 99285-25

== ENCOUNTER 2021-07-13 20:36 | Inpatient (IN) | payer OTHER ==
[2021-07-13] MEDS ORDERED: SODIUM CHLORIDE 0.9% 500 ML INFUS.BAG IV ONE (21:52)
[2021-07-13] MEDS ORDERED: LOSARTAN POTASSIUM 50 MG TABLET PO ONE (21:57)
[2021-07-13 22:11] LABS: URINE APPEARANCE CLEAR; URINE BILIRUBIN NEGATIVE (NEGATIVE); URINE COLOR YELLOW; URINE GLUCOSE (UA) NEGATIVE (NEGATIVE); URINE KETONE 1+ (NEGATIVE); URINE LEUK ESTERASE NEGATIVE (NEGATIVE); URINE NITRITE NEGATIVE (NEGATIVE); URINE PROTEIN NEGATIVE (NEGATIVE); URINE UROBILINOGEN 0.2 mg/dL (0.2-1.0)
[2021-07-13] MEDS ORDERED: LOSARTAN POTASSIUM 50 MG TABLET ONE (22:14)
[2021-07-13 22:45] LABS: BASO % 0.3 % (0-2.0); EOS % 0.1 % (0-4.5); HEMATOCRIT 40.7 % (32.4-45.2); HEMOGLOBIN 14.9 GM/dL (10.7-15.3); LYMPH % 20.4 % (8-40); MCHC 36.7 g/dl (32.0-36.0); MEAN CELL VOLUME 87.2 fl (80-96); MEAN PLT VOLUME 9.9 fl (7.5-11.1); MONO % 9.3 % (3.8-10.2); NEUT % 69.9 % (42.8-82.8); PLATELET COUNT 205 10^3/uL (134-434); RBC 4.67 M/mm3 (3.60-5.2); RDW 12.4 % (11.6-15.6); WHITE BLOOD COUNT 7.9 K/mm3 (4.0-10.0)
[2021-07-13 22:58] LABS: CHLORIDE 79 mmol/L (98-107)
[2021-07-13 23:00] LABS: CALCIUM 8.6 mg/dL (8.5-10.1)
[2021-07-13 23:01] LABS: ALBUMIN 3.9 g/dl (3.4-5.0); BLOOD UREA NITROGEN 6.1 mg/dL (7-18); CO2 24 mmol/L (21-32); GLUCOSE,RANDOM 104 mg/dL (74-106)
[2021-07-13 23:04] LABS: CREATININE 0.6 mg/dL (0.55-1.3); PHOSPHOROUS 3.3 mg/dL (2.5-4.9); SGOT/AST 20 U/L (15-37); SGPT/ALT 26 U/L (13-61)
[2021-07-13 23:05] LABS: BILIRUBIN,TOTAL 1.2 mg/dL (0.2-1)
[2021-07-13 23:06] LABS: ALK PHOS 98 U/L (45-117)
[2021-07-13 23:49] LABS: ANION GAP 12 MMOL/L (8-16); SODIUM 115 mmol/L (136-145)
[2021-07-13] MEDS ORDERED: SODIUM CHLORIDE 3% 500 ML/500 ML INFUS.BAG IV ONE (23:59)
[2021-07-14 00:59] LABS: CHLORIDE 81 mmol/L (98-107)
[2021-07-14 01:01] LABS: CALCIUM 8.4 mg/dL (8.5-10.1); CO2 22 mmol/L (21-32)
[2021-07-14 01:02] LABS: BLOOD UREA NITROGEN 6.3 mg/dL (7-18); GLUCOSE,RANDOM 96 mg/dL (74-106)
[2021-07-14 01:05] LABS: CREATININE 0.6 mg/dL (0.55-1.3)
[2021-07-14 01:31] LABS: ANION GAP 12 MMOL/L (8-16); SODIUM 115 mmol/L (136-145)
[2021-07-14] MEDS ORDERED: SODIUM CHLORIDE 1,000 ML IV SCH ×2 (02:15→06:55)
[2021-07-14 06:10] LABS: CHLORIDE 85 mmol/L (98-107)
[2021-07-14 06:12] LABS: BLOOD UREA NITROGEN 5.6 mg/dL (7-18); CO2 23 mmol/L (21-32); GLUCOSE,RANDOM 90 mg/dL (74-106)
[2021-07-14 06:15] LABS: CREATININE 0.6 mg/dL (0.55-1.3)
[2021-07-14 06:38] LABS: ANION GAP 11 MMOL/L (8-16); SODIUM 119 mmol/L (136-145)
[2021-07-14 07:22] LABS: BASO % 0.2 % (0-2.0); EOS % 0.4 % (0-4.5); HEMATOCRIT 41.1 % (32.4-45.2); HEMOGLOBIN 14.6 GM/dL (10.7-15.3); MCH 31.8 pg (25.7-33.7); MCHC 35.6 g/dl (32.0-36.0); MEAN CELL VOLUME 89.2 fl (80-96); MEAN PLT VOLUME 9.5 fl (7.5-11.1); MONO % 11.8 % (3.8-10.2); NEUT % 55.6 % (42.8-82.8); PLATELET COUNT 173 10^3/uL (134-434); RBC 4.61 M/mm3 (3.60-5.2); RDW 12.3 % (11.6-15.6); WHITE BLOOD COUNT 7.2 K/mm3 (4.0-10.0)
[2021-07-14 07:42] LABS: BLOOD UREA NITROGEN 5.4 mg/dL (7-18); CALCIUM 8.2 mg/dL (8.5-10.1); MAGNESIUM 2.1 mg/dL (1.8-2.4)
[2021-07-14 07:45] LABS: CHOLESTEROL 100 mg/dL (50-200); CREATININE 0.6 mg/dL (0.55-1.3); PHOSPHOROUS 3.1 mg/dL (2.5-4.9); TRIGLYCERIDES 41 mg/dL (0-150)
[2021-07-14 07:46] LABS: LDL CHOLESTEROL (ONLY SJRH) 24 mg/dL (5-100)
[2021-07-14 07:48] LABS: HDL CHOLESTEROL 76 mg/dL (40-60)
[2021-07-14] MEDS ORDERED: ASPIRIN 81 MG CHEWABLE TABLETS ONE (11:50)
[2021-07-14] MEDS ORDERED: ATENOLOL 25 MG TABLET (FP) ONE (11:50)
[2021-07-14] MEDS ORDERED: LOSARTAN POTASSIUM 50 MG TABLET ONE (11:50)
[2021-07-14] MEDS ORDERED: LEVOTHYROXINE NA 25 MCG TABLET (FP) ONE (11:51)
[2021-07-14] MEDS ORDERED: ENOXAPARIN NA (PORCINE) 40 MG/0.4 ML DISP.SYRIN SQ ONE (11:51)
[2021-07-14] MEDS: LEVOTHYROXINE NA 50 MCG TABLET (FP) PO SCH (12:00)
[2021-07-14] MEDS: ATENOLOL 25 MG TABLET (FP) PO SCH (12:01)
[2021-07-14] MEDS: ASPIRIN 81 MG CHEWABLE TABLETS PO SCH (12:01)
[2021-07-14] MEDS: ENOXAPARIN NA (PORCINE) 40 MG/0.4 ML DISP.SYRIN SQ SCH (12:01)
[2021-07-14] MEDS: LOSARTAN POTASSIUM 50 MG TABLET PO SCH (12:01)
[2021-07-14 13:52] LABS: BLOOD UREA NITROGEN 7.2 mg/dL (7-18)
[2021-07-14 13:54] LABS: CREATININE 0.8 mg/dL (0.55-1.3)
[2021-07-14 16:57] VITALS: BMI 26.4
[2021-07-14] MEDS: DESMOPRESSIN ACETATE 0.1 MG TABLET PO SCH ×2 (18:33→21:23)
[2021-07-14] MEDS ORDERED: PT OWN MED DRAWER 7, Y5N ONE (21:01)
[2021-07-14] MEDS: ATORVASTATIN CA 10 MG TABLET (FP) PO SCH (21:29)
[2021-07-15 01:56] LABS: CALCIUM 9.3 mg/dL (8.5-10.1)
[2021-07-15 01:57] LABS: BLOOD UREA NITROGEN 16.9 mg/dL (7-18)
[2021-07-15 02:00] LABS: CREATININE 1.1 mg/dL (0.55-1.3)
[2021-07-15] MEDS: LEVOTHYROXINE NA 50 MCG TABLET (FP) PO SCH (06:12)
[2021-07-15] MEDS ORDERED: DEXTROSE 5%-WATER - 1,000 ML IV SCH (07:15)
[2021-07-15] MEDS ORDERED: DESMOPRESSIN ACETATE 0.1 MG TABLET PO SCH (08:00)
[2021-07-15] MEDS ORDERED: PT OWN MED DRAWER 7, Y5N ONE ×4 (09:06→22:17)
[2021-07-15] MEDS: DESMOPRESSIN ACETATE 0.2 MG TABLET PO SCH ×3 (09:18→22:05)
[2021-07-15] MEDS: ASPIRIN 81 MG CHEWABLE TABLETS PO SCH (09:19)
[2021-07-15] MEDS: LOSARTAN POTASSIUM 50 MG TABLET PO SCH (09:40)
[2021-07-15] MEDS: ENOXAPARIN NA (PORCINE) 40 MG/0.4 ML DISP.SYRIN SQ SCH (09:40)
[2021-07-15] MEDS: ATENOLOL 25 MG TABLET (FP) PO SCH (09:42)
[2021-07-15 10:28] LABS: BASO % 0.4 % (0-2.0); HEMATOCRIT 43.5 % (32.4-45.2); HEMOGLOBIN 15.5 GM/dL (10.7-15.3); MCH 31.9 pg (25.7-33.7); MCHC 35.7 g/dl (32.0-36.0); MEAN CELL VOLUME 89.3 fl (80-96); MEAN PLT VOLUME 9.6 fl (7.5-11.1); MONO % 6.6 % (3.8-10.2); PLATELET COUNT 225 10^3/uL (134-434); RBC 4.88 M/mm3 (3.60-5.2); RDW 12.9 % (11.6-15.6); WHITE BLOOD COUNT 9.3 K/mm3 (4.0-10.0)
[2021-07-15 11:11] LABS: BLOOD UREA NITROGEN 14.4 mg/dL (7-18); CALCIUM 9.6 mg/dL (8.5-10.1)
[2021-07-15] MEDS ORDERED: LOSARTAN POTASSIUM 50 MG TABLET PO SCH (16:39)
[2021-07-15] MEDS: ATORVASTATIN CA 10 MG TABLET (FP) PO SCH (22:05)
[2021-07-16] MEDS ORDERED: PT OWN MED DRAWER 7, Y5N ONE ×3 (06:40→13:03)
[2021-07-16] MEDS: DESMOPRESSIN ACETATE 0.1 MG TABLET PO SCH ×2 (06:41→13:09)
[2021-07-16] MEDS: LEVOTHYROXINE NA 50 MCG TABLET (FP) PO SCH (07:38)
[2021-07-16] MEDS: ASPIRIN 81 MG CHEWABLE TABLETS PO SCH (09:30)
[2021-07-16] MEDS: ENOXAPARIN NA (PORCINE) 40 MG/0.4 ML DISP.SYRIN SQ SCH (09:32)
[2021-07-16] MEDS ORDERED: NEBIVOLOL 2.5 MG TABLET (FP) PO SCH (10:00)
[2021-07-16 15:25] VITALS: BP 142/71; PULSE 68; TEMP 98.4
[2021-07-16 15:35] LABS: HEMATOCRIT 42.8 % (32.4-45.2); MCH 31.9 pg (25.7-33.7); MCHC 35.1 g/dl (32.0-36.0); MEAN CELL VOLUME 91.1 fl (80-96); MEAN PLT VOLUME 9.6 fl (7.5-11.1); PLATELET COUNT 212 10^3/uL (134-434); RDW 12.9 % (11.6-15.6); WHITE BLOOD COUNT 8.2 K/mm3 (4.0-10.0)
[2021-07-16 15:47] LABS: BLOOD UREA NITROGEN 12.8 mg/dL (7-18); CALCIUM 9.3 mg/dL (8.5-10.1)
[2021-07-16 15:50] LABS: CREATININE 0.9 mg/dL (0.55-1.3)
== END 2021-07-16 17:38 | disposition home or self-care (01) | DRG 641 ==
LOC: JER 20:36 → JERBED 07-14 00:03 → J5S 07-14 15:25
PROVIDERS: ADMIT Internal Medicine
DX: E87.1 Hypo-osmolality and hyponatremia (principal); E23.2 Diabetes insipidus; I10 Essential (primary) hypertension; E03.9 Hypothyroidism, unspecified; E11.9 Type 2 diabetes mellitus without complications; I25.2 Old myocardial infarction; R00.1 Bradycardia, unspecified; I44.0 Atrioventricular block, first degree; R19.7 Diarrhea, unspecified; E78.5 Hyperlipidemia, unspecified; R53.83 Other fatigue; E87.8 Other disorders of electrolyte and fluid balance, not elsewhere classified; R07.9 Chest pain, unspecified; E66.3 Overweight; Z68.26 Body mass index [BMI] 26.0-26.9, adult
CPT/HCPCS: 36415; 71046-TC-FY; 80048; 80053; 80061; 81003; 82024; 82533; 82550; 82553; 83735; 83930; 83935; 84100; 84300; 84436; 84439; 84443; 84479; 84484; 85025; 85027; 87177; 87209; 93005; 93010; 99285-25; C9803; U0003; U0005

== ENCOUNTER 2021-07-22 18:03 | Observation (INO) | payer OTHER ==
[2021-07-22] MEDS ORDERED: ASPIRIN 81 MG CHEWABLE TABLETS PO ONE (21:09)
[2021-07-22 21:50] LABS: BASO % 0.6 % (0-2.0); EOS % 1.3 % (0-4.5); HEMATOCRIT 42.2 % (32.4-45.2); HEMOGLOBIN 14.5 GM/dL (10.7-15.3); MCH 31.3 pg (25.7-33.7); MCHC 34.3 g/dl (32.0-36.0); MEAN CELL VOLUME 91.4 fl (80-96); MEAN PLT VOLUME 8.2 fl (7.5-11.1); MONO % 8.6 % (3.8-10.2); NEUT % 50.5 % (42.8-82.8); PLATELET COUNT 198 10^3/uL (134-434); RBC 4.62 M/mm3 (3.60-5.2); RDW 12.8 % (11.6-15.6)
[2021-07-22 22:04] LABS: INR 1.08 (0.83-1.09)
[2021-07-22 22:07] LABS: ACTIVATED PTT 27.6 SECONDS (25.2-36.5)
[2021-07-22 22:14] LABS: CHLORIDE 108 mmol/L (98-107); SODIUM 141 mmol/L (136-145)
[2021-07-22 22:16] LABS: ALBUMIN 3.9 g/dl (3.4-5.0); ANION GAP 6 MMOL/L (8-16); BLOOD UREA NITROGEN 15.8 mg/dL (7-18); CALCIUM 8.9 mg/dL (8.5-10.1); CO2 28 mmol/L (21-32); MAGNESIUM 2.7 mg/dL (1.8-2.4)
[2021-07-22 22:17] LABS: GLUCOSE,RANDOM 82 mg/dL (74-106)
[2021-07-22 22:19] LABS: SGPT/ALT 25 U/L (13-61)
[2021-07-22 22:20] LABS: CREATININE 0.8 mg/dL (0.55-1.3)
[2021-07-22 22:21] LABS: BILIRUBIN,TOTAL 0.4 mg/dL (0.2-1)
[2021-07-22 22:22] LABS: ALK PHOS 93 U/L (45-117)
[2021-07-22 22:25] LABS: SGOT/AST 25 U/L (15-37); TOT PROT 7.6 g/dl (6.4-8.2)
[2021-07-23 07:01] LABS: BASO % 0.4 % (0-2.0); EOS % 1.7 % (0-4.5); HEMATOCRIT 39.6 % (32.4-45.2); HEMOGLOBIN 13.6 GM/dL (10.7-15.3); LYMPH % 40.7 % (8-40); MCH 31.5 pg (25.7-33.7); MCHC 34.4 g/dl (32.0-36.0); MEAN CELL VOLUME 91.7 fl (80-96); MEAN PLT VOLUME 8.5 fl (7.5-11.1); MONO % 9.8 % (3.8-10.2); NEUT % 47.4 % (42.8-82.8); PLATELET COUNT 174 10^3/uL (134-434); RBC 4.32 M/mm3 (3.60-5.2); RDW 13.1 % (11.6-15.6); WHITE BLOOD COUNT 6.5 K/mm3 (4.0-10.0)
[2021-07-23 07:27] LABS: BLOOD UREA NITROGEN 14.2 mg/dL (7-18); CALCIUM 8.6 mg/dL (8.5-10.1)
[2021-07-23 07:28] LABS: ALBUMIN 3.2 g/dl (3.4-5.0); MAGNESIUM 2.6 mg/dL (1.8-2.4)
[2021-07-23 07:31] LABS: CREATININE 0.8 mg/dL (0.55-1.3); PHOSPHOROUS 4.3 mg/dL (2.5-4.9)
[2021-07-23 07:32] LABS: BILIRUBIN,TOTAL 0.6 mg/dL (0.2-1)
[2021-07-23 07:33] LABS: TOT PROT 5.6 g/dl (6.4-8.2)
[2021-07-23] MEDS ORDERED: LOSARTAN POTASSIUM 50 MG TABLET ONE (09:17)
[2021-07-23] MEDS ORDERED: ENOXAPARIN NA (PORCINE) 40 MG/0.4 ML DISP.SYRIN SQ ONE (09:17)
[2021-07-23] MEDS ORDERED: ASPIRIN 81 MG CHEWABLE TABLETS ONE (09:17)
[2021-07-23] MEDS ORDERED: NEBIVOLOL 2.5 MG TABLET (FP) PO SCH ×2 (10:00)
[2021-07-23 10:44] LABS: EPI CELLS 9 /uL (0-25.1); HYALINE CASTS 1 /uL (0-3.1); URINE APPEARANCE CLEAR; URINE BACTERIA 88 /uL (0-1359); URINE BILIRUBIN NEGATIVE (NEGATIVE); URINE COLOR YELLOW; URINE GLUCOSE (UA) NEGATIVE (NEGATIVE); URINE KETONE NEGATIVE (NEGATIVE); URINE LEUK ESTERASE 2+ (NEGATIVE); URINE NITRITE NEGATIVE (NEGATIVE); URINE PROTEIN NEGATIVE (NEGATIVE); URINE RBC 4 /uL (0-23.9); URINE UROBILINOGEN 0.2 mg/dL (0.2-1.0); URINE WBC 31 /uL (0-25.8)
[2021-07-23] MEDS: DESMOPRESSIN ACETATE 0.1 MG TABLET PO SCH ×3 (10:57→21:51)
[2021-07-23] MEDS: LEVOTHYROXINE NA 50 MCG TABLET (FP) PO SCH (10:57)
[2021-07-23] MEDS: ENOXAPARIN NA (PORCINE) 40 MG/0.4 ML DISP.SYRIN SQ SCH (10:58)
[2021-07-23] MEDS: ASPIRIN 81 MG CHEWABLE TABLETS PO SCH (10:58)
[2021-07-23] MEDS: LOSARTAN POTASSIUM 50 MG TABLET PO SCH (10:58)
[2021-07-23] MEDS: NEBIVOLOL 2.5 MG TABLET (FP) PO SCH (17:02)
[2021-07-23 17:45] VITALS: BMI 26.9
[2021-07-23] MEDS ORDERED: ATORVASTATIN CA 10 MG TABLET (FP) PO SCH (22:00)
[2021-07-24] MEDS: LEVOTHYROXINE NA 50 MCG TABLET (FP) PO SCH (06:00)
[2021-07-24] MEDS: DESMOPRESSIN ACETATE 0.1 MG TABLET PO SCH ×2 (06:30→14:39)
[2021-07-24 08:42] LABS: BASO % 0.3 % (0-2.0); EOS % 1.8 % (0-4.5); HEMATOCRIT 39.3 % (32.4-45.2); HEMOGLOBIN 13.7 GM/dL (10.7-15.3); MCH 31.9 pg (25.7-33.7); MCHC 34.9 g/dl (32.0-36.0); MEAN CELL VOLUME 91.5 fl (80-96); MEAN PLT VOLUME 9.2 fl (7.5-11.1); MONO % 9.9 % (3.8-10.2); PLATELET COUNT 183 10^3/uL (134-434); WHITE BLOOD COUNT 5.8 K/mm3 (4.0-10.0)
[2021-07-24 09:01] LABS: MAGNESIUM 2.4 mg/dL (1.8-2.4)
[2021-07-24 09:04] LABS: BLOOD UREA NITROGEN 12.4 mg/dL (7-18); CALCIUM 8.7 mg/dL (8.5-10.1); CREATININE 0.7 mg/dL (0.55-1.3)
[2021-07-24 09:05] LABS: PHOSPHOROUS 3.8 mg/dL (2.5-4.9)
[2021-07-24 09:06] LABS: TOT PROT 6.3 g/dl (6.4-8.2)
[2021-07-24 09:07] LABS: BILIRUBIN,TOTAL 0.7 mg/dL (0.2-1)
[2021-07-24] MEDS: ASPIRIN 81 MG CHEWABLE TABLETS PO SCH (09:14)
[2021-07-24] MEDS: NEBIVOLOL 2.5 MG TABLET (FP) PO SCH (09:14)
[2021-07-24] MEDS: LOSARTAN POTASSIUM 50 MG TABLET PO SCH (09:14)
[2021-07-24 09:33] LABS: ALBUMIN 3.2 g/dl (3.4-5.0)
[2021-07-24] MEDS ORDERED: LOSARTAN POTASSIUM 50 MG TABLET PO SCH (10:00)
[2021-07-24] MEDS ORDERED: SODIUM CHLORIDE 500 ML IV STA (10:48)
[2021-07-24] MEDS: ENOXAPARIN NA (PORCINE) 40 MG/0.4 ML DISP.SYRIN SQ SCH (11:40)
[2021-07-24 15:26] VITALS: BP 116/62; PULSE 65; TEMP 98.2
[2021-07-24] MEDS ORDERED: amLODIPine BESYLATE 5 MG TABLET (FP) PO SCH (22:00)
== END 2021-07-24 16:43 | disposition home or self-care (01) ==
LOC: JER 18:03 → UNDOADMOB 23:11 → JERBED 23:11 → OBSVTOIN 07-23 02:52 → INTOOBSV 07-23 02:52 → JERBED 07-23 17:25 → J4W 07-23 17:25 → JERBED 07-24 10:03
PROVIDERS: ADMIT Internal Medicine; ATTEND Internal Medicine
PROC: 3E0337Z Introduction of Electrolytic and Water Balance Substance into Peripheral Vein, Percutaneous Approach (ICD-10-PCS; principal; 2021-07-24)
DX: I25.119 Atherosclerotic heart disease of native coronary artery with unspecified angina pectoris (principal); I11.9 Hypertensive heart disease without heart failure; R00.1 Bradycardia, unspecified; E78.00 Pure hypercholesterolemia, unspecified; I25.2 Old myocardial infarction; E23.2 Diabetes insipidus; I21.4 Non-ST elevation (NSTEMI) myocardial infarction; N39.9 Disorder of urinary system, unspecified; E03.9 Hypothyroidism, unspecified; I35.1 Nonrheumatic aortic (valve) insufficiency
CPT/HCPCS: 36415; 70450-TC; 71046-TC-FY; 80053; 80061; 81003; 82550; 83036; 83735; 84100; 84443; 84484; 85025; 85610; 85730; 93005; 93010; 93306-TC; 96360; 99285-25; C9803; G0378; U0003; U0005